=== PATIENT | male | born 1945 | race Caucasian/White ===

== ENCOUNTER → 2018-09-27 | Outpatient (CLI) | payer OTHER, MEDICARE ==
[~2018-09-27] MED LIST: ADVAIR 250-501 EACH INH; AMBIEN 10 MG TA10 MG PO; B COMPLEX1 EACH PO; CALCIUM500 MG PO; CLONAZEPAM 1 MG1 M1 PO; FLEXERIL PO; GLUCOPHAGE500 MG PO; GLUCOSAMINE H1500 MG PO; MULTIVITAMINS PO; MYSOLINE250 M1 PO; OMEGA-31000 M1 PO; PROAIR HFA8.5 GM INH; SPIRIVA INH; ZOCOR 20 MG TAB20 M1 PO
== END ==
LOC: RAD 13:45
DX: J98.4 Other disorders of lung (principal)

== ENCOUNTER → 2018-11-09 | Outpatient (CLI) | payer OTHER, MEDICARE | LOC: CAT 09:09 | DX: J47.0 Bronchiectasis with acute lower respiratory infection (principal); J43.1 Panlobular emphysema; A31.0 Pulmonary mycobacterial infection; K74.60 Unspecified cirrhosis of liver; R63.4 Abnormal weight loss; G25.0 Essential tremor; R91.8 Other nonspecific abnormal finding of lung field; I25.10 Atherosclerotic heart disease of native coronary artery without angina pectoris; N28.1 Cyst of kidney, acquired; Z90.49 Acquired absence of other specified parts of digestive tract ==